=== PATIENT | female | born 1995 | race Caucasian/White ===

== ENCOUNTER 2021-09-15 13:01 | Outpatient (CLI) | payer OTHER ==
[~2021-09-15 13:01] MED LIST: GADOBUTROL 7.5 MMOL/7.5 ML VIAL ONE; IOTHALAMATE MEGLUMINE 50 ML VIAL ONE; LIDOCAINE-MPF 1% 10 ML AMP ONE
[2021-09-15] MEDS ORDERED: IOTHALAMATE MEGLUMINE 50 ML VIAL IVP ONE (14:01)
[2021-09-15] MEDS ORDERED: LIDOCAINE-MPF 1% 10 ML AMP IM ONE (14:03)
[2021-09-15] MEDS ORDERED: GADOBUTROL 7.5 MMOL/7.5 ML VIAL IVP ONE (14:03)
--- NOTE | 2021-09-15 15:10 | XRAY Report ---
PROCEDURE: Arthrogram Needle Placement INDICATIONS: PAIN IN SHOULDER CONTRAST: CONTRAST: conray/ gadavi FLUOROSCOPY TIME: FLUORO TIME: 0.01 min and NUMBER IMAGES: 3 TECHNIQUE: The indications, alternatives, benefits, risks, and complications of the procedure were explained to the patient. Written informed consent was obtained and placed in the chart. The shoulder was examin ed fluoroscopically and a site for needle placement chosen for entry into the glenohumeral joint from an anterior approach. The skin was prepped and draped in the usual fashion, and 1% lidocaine infilt rated from skin down to joint capsule. A spinal needle was inserted into the glenohumeral joint, and a small amount of iodinated contrast media injected to confirm intra-articular placement of the need le tip. This was followed by approximately 12 mL dilute solution of a gadolinium containing MR contr ast agent. The needle was removed and a dressing was applied. The patient was given postprocedural instructions and sent to the MR suite for MR imaging. FINDINGS: Fluoroscopic spot images demonstrate intra-articular location of injected iodinated contrast. IMPRESSION: Successful fluoroscopically guided administration of dilute Gadolinium solution into the shoulder liam hernandez for MR arthrogram. Reviewed by: Tee Vuong MD on 09/15/2021 3:09 PM PDT Approved by: Tee Vuong MD on 09/15/2021 3:09 PM PDT Station ID: [id number]
--- NOTE | 2021-09-15 21:26 | MRI Report ---
PROCEDURE: Arthrogram Shoulder LT INDICATIONS: PAIN IN SHOULDER CONTRAST: 12 mL of diluted intra-articular gadolinium contrast. TECHNIQUE: After the administration of 12 mL of dilute intra-articular Gadolinium contrast, oblique coronal T1 a nd T2 spin echo with fat saturation, oblique sagittal T1 spin echo with and without fat saturation, o blique sagittal T2 fast spin echo with fat saturation, axial T1 spin echo with fat saturation through the shoulder. COMPARISON: None. FINDINGS: Image quality: Excellent. Rotator cuff: Tendinosis and low-grade articular and bursal surface partial-thickness tear involving distal supraspinatus at its insertion on humeral head is seen extending to musculotendinous junction . Distal infraspinatus and subscapularis tendons are intact. No full-thickness rotator cuff tendon ru pture. No rotator cuff muscle atrophy on sagittal images. Bones and bursae: No bone marrow contusions or fractures. No acromioclavicular joint degeneration. The acromion demonstrates conventional anatomy, without an os acromiale. Capsule and soft tissues: There is no evidence of focal labral tear. The glenohumeral ligaments appea r intact. The long head of the biceps tendon demonstrates normal location and morphology. The rotat or interval appears normal, without fibrosis. The coracohumeral ligament is of normal thickness. No intra-articular bodies. IMPRESSION: 1. Tendinosis and low-grade articular and bursal surface partial-thickness tear involving distal supr aspinatus at its insertion on humeral head extending to musculotendinous junction. No full-thickness rotator cuff tendon rupture. No muscle atrophy. 2. No marrow edema. No fracture or dislocation. No suspicious intraosseous lesion. 3. No evidence of focal labral tear. Reviewed by: Ga Singer MD on 09/15/2021 9:25 PM PDT Approved by: Ga Singer MD on 09/15/2021 9:25 PM PDT Station ID: [id number]
== END 2021-09-15 13:02 | disposition home or self-care (01) ==
LOC: DI 13:01
PROVIDERS: ATTEND Internal Medicine
DX: M75.112 Incomplete rotator cuff tear or rupture of left shoulder, not specified as traumatic (principal)
CPT/HCPCS: 23350; 73222; 77002; A9585; Q9961

== ENCOUNTER 2021-10-09 06:00 | Outpatient (CLI) | payer OTHER ==
--- NOTE | 2021-10-09 15:58 | XRAY Report ---
PROCEDURE: Shoulder 3 View LT INDICATIONS: LEFT SHOULDER PAIN TECHNIQUE: 4 views of the shoulder were acquired. COMPARISON: MRI 09/15/2021. FINDINGS: Bones: No fractures or dislocations. No suspicious bony lesions. Visualized ribs appear intact. Soft tissues: No suspicious soft tissue calcifications. IMPRESSION: No osseous lesion. If symptoms and/or clinical concern for pathology persists, further a ssessment with repeat plain film radiographs (7-10 days) or advanced imaging (CT, MR, bone scan) shou ld be considered. Reviewed by: Rosenda Magdaleno MD, PhD on 10/09/2021 3:57 PM PDT Approved by: Rosenda Magdaleno MD, PhD on 10/09/2021 3:57 PM PDT Station ID: [id number]
== END 2021-10-09 23:59 | disposition home or self-care (01) ==
LOC: DI.WOS 06:00
PROVIDERS: ATTEND Physician Assistant Surgical
DX: M25.512 Pain in left shoulder (principal)

== ENCOUNTER 2023-02-04 08:00 | Outpatient (CLI) | payer OTHER | END 2023-02-04 23:59 | disposition home or self-care (01) | LOC: LAB.S 08:00 | PROVIDERS: ATTEND Physician Assistant | DX: N10 Acute pyelonephritis (principal) | CPT/HCPCS: 87086; 87181 ==